=== PATIENT | female | born 1985 ===

== ENCOUNTER 2024-02-03 04:37 | Day surgery (SDC) | payer OTHER ==
[2024-01-25 12:58] VITALS: BMI 52.7
[2024-02-03] MEDS ORDERED: oxyCODONE HCL 5 MG TABLET PO PRN (12:04)
[2024-02-03] MEDS ORDERED: LACTATED RINGERS SOLUTION 1,000 ML IV SCH (12:15)
[2024-02-03] MEDS ORDERED: MIDAZOLAM HCL 2 MG/2 ML SINGLE DOSE VIAL ONE (13:15)
[2024-02-03] MEDS ORDERED: PROPOFOL 40 ML ONE (13:16)
[2024-02-03] MEDS ORDERED: ceFAZolin SODIUM 1 GM VIAL ONE (13:33)
[2024-02-03] MEDS: ceFAZolin SODIUM 1 GM VIAL IVPB ONE (13:37)
[2024-02-03] MEDS ORDERED: ROCURONIUM BROMIDE 50 MG/5 ML SYRINGE ONE (13:39)
[2024-02-03] MEDS ORDERED: GLYCOPYRROLATE 0.2 MG/1 ML VIAL ONE (13:39)
[2024-02-03] MEDS ORDERED: PROPOFOL 20 ML ONE (13:44)
[2024-02-03] MEDS ORDERED: ACETAMINOPHEN INJECTION 100 ML ONE (13:46)
[2024-02-03] MEDS ORDERED: SUGAMMADEX SODIUM 200 MG/2 ML VIAL ONE (14:39)
[2024-02-03] MEDS ORDERED: ONDANSETRON 4 MG/2 ML VIAL ONE (15:14)
[2024-02-03] MEDS: ONDANSETRON 4 MG/2 ML VIAL IVPUSH PRN (15:17)
[2024-02-03] MEDS ORDERED: ACETAMINOPHEN 325 MG TABLET (FP) PO PRN (15:22)
[2024-02-03] MEDS ORDERED: IBUPROFEN 600 MG TABLET (FP) PO PRN ×2 (15:22→15:24)
[2024-02-03] MEDS ORDERED: IBUPROFEN 800 MG/8 ML IJ IVPB PRN (15:22)
[2024-02-03 16:27] VITALS: RESP 16
[2024-02-03 17:39] VITALS: BP 129/77; PULSE 70; TEMP 97.6
[2024-02-04] MEDS ORDERED: oxyCODONE HCL 5 MG TABLET PO PRN (03:24)
== END 2024-02-03 17:44 | disposition home or self-care (01) ==
LOC: JASU-SURG 04:37
PROVIDERS: ATTEND Obstetrics & Gynecology
PROC: 0U5B8ZZ Destruction of Endometrium, Via Natural or Artificial Opening Endoscopic (ICD-10-PCS; principal; 2024-02-03 13:00)
DX: N92.0 Excessive and frequent menstruation with regular cycle (principal)
CPT/HCPCS: 81025; 86900; 88305-TC; 94760; J0131